=== PATIENT | female | born 1995 | race American Indian/Alaskan Native ===

== ENCOUNTER 2016-06-03 09:06 | Day surgery (SDC) | payer OTHER ==
--- NOTE | 2016-06-03 09:48 | Short Stay Summary ---
Short Stay Documentation Date of service: 06/03/16 Narrative H&P: Pt is a 20yo BF G0 LMP 04/17/16 presents for surgical evaluation of prolonged heavy vaginal bleeding unresponsive to hormonal therapy. - History Principal diagnosis: Dysfunctional uterine bleeding H&P: obtained from office Past Medical History: No medical history Past Surgical History: No surgical history Social history: no significant social history, single - Allergies and Medications Current Medications: Allergies No Known Allergies Allergy (Unverified 05/30/16 12:11) Home Medications Medication Instructions Recorded Confirmed Last Taken Type Ibuprofen [Motrin 800 MG tab] 800 mg PO PRN PRN 05/30/16 05/30/16 Unknown History Active Medications Cefazolin Sodium (Ancef/Sterile Water 2 Gm/20 Ml) 20 mls @ 80 mls/hr IV PREOP NR PRN Reason: Protocol Lactated Ringer's (Lactated Ringers) 1,000 mls @ 125 mls/hr IV DIRECT RASHEL - Physical exam General appearance: no acute distress Integumentary: no rash HEENT: Atraumatic Lungs: Clear to auscultation Breasts: deferred Heart: Regular rate Gastrointestinal: normal Female Genitourinary: deferred Rectal Exam: deferred Extremities: no ischemia, No edema Neurological: Normal gait, Normal speech - Brief post op/procedure progress note Date of procedure: 06/03/16 Pre-op diagnosis: Dysfunctional uterine bleeding Post-op diagnosis: same Procedure: 1. Hysteroscopy 2. D&C Anesthesia: MAC Findings: An 8-10 weeks size uterus with moderate amounts of endometrial tissue obtained. No polyps or endometrial masses seen. Surgeon: HORTENCIA SUAREZ Estimated blood loss: minimal Pathology: list (Endometrial currettings) Specimen disposition: to lab Condition: stable - Hospital course Hospital course: Unremarkable. - Disposition Condition at discharge: Good Disposition: DISCHARGED TO HOME OR [facility]ELFCARE - Discharge Diagnoses (1) DUB (dysfunctional uterine bleeding) Status: Chronic Short Stay Discharge Plan Activity: no restrictions Diet: regular Follow up with: HORTENCIA SUAREZ MD [Primary Care Provider] - 14 Days Prescriptions: HYDROcodone/APAP 5-325 [Milmay 5/325] 1 each PO Q6HR PRN #20 tablet PRN Reason: Pain
--- NOTE | 2016-06-03 09:48 | Anesthesia Consultation ---
Anesthesia Consult and Med Hx Date of service: 06/03/16 - Airway Anesthetic Teeth Evaluation: Good ROM Head & Neck: Adequate Mental/Hyoid Distance: Adequate Mallampati Class: Class II Intubation Access Assessment: Good - Pulmonary Exam CTA: Yes - Cardiac Exam Cardiac Exam: RRR - Pre-Operative Health Status ASA Pre-Surgery Classification: ASA1 Proposed Anesthetic Plan: General - Central Nervous System Hx Psychiatric Problems: No - Other Systems Hx Alcohol Use: Yes (occas) Hx Cancer: No - Additional Comments Anesthesia Medical History Comments: Healthy
[2016-06-03] MEDS ORDERED: NORCO 5/325 PO PRN (09:49)
[2016-06-03] MEDS ORDERED: ZOFRAN IV PRN (09:49)
--- NOTE | 2016-06-03 09:50 | Anesthesia Day of Surgery ---
Anesthesia Day of Surgery - Day of Surgery Patient Examined: Yes Patient H&P Reviewed: Yes Patient is NPO: Yes
[2016-06-03] MEDS ORDERED: DIPRIVAN 10 MG/ML IV ONE (09:54)
[2016-06-03] MEDS ORDERED: DILAUDID ONE (09:54)
[2016-06-03] MEDS ORDERED: DECADRON ONE (09:54)
[2016-06-03] MEDS ORDERED: TORADOL ONE (09:54)
[2016-06-03] MEDS ORDERED: ZOFRAN ONE (09:54)
[2016-06-03] MEDS ORDERED: XYLOCAINE MPF 2% ONE (09:54)
[2016-06-03] MEDS ORDERED: VERSED IV NR (10:00)
[2016-06-03] MEDS ORDERED: LACTATED RINGERS 1,000 ML IV SCH (10:00)
[2016-06-03] MEDS ORDERED: ANCEF/STERILE WATER 2 GM/20 ML 20 ML IV NR (10:00)
[2016-06-03 10:18] LABS: Hematocrit 41.5 % (30.3-42.9); Hemoglobin 13.9 gm/dl (10.1-14.3); Mean Corpuscular HGB Conc 34 % (30-34); Mean Corpuscular Hemoglobin 32 pg (28-32); Mean Corpuscular Volume 96 fl (79-97); Platelet Count 262 K/mm3 (140-440); Red Blood Count 4.35 M/mm3 (3.65-5.03); Red Cell Distribution Width 13.1 % (13.2-15.2)
[2016-06-03] MEDS ORDERED: NACL 0.9% IR ONE (10:45)
--- NOTE | 2016-06-03 11:12 | Operative Report ---
Operative Report Operative Report: PREOPERATIVE DIAGNOSIS: Dysfunctional uterine bleeding POSTOPERATIVE DIAGNOSIS: Same OPERATIVE PROCEDURE: 1. Hysteroscopy 2. Dilatation and curettage. SURGEON: Jose Boland MD ANESTHESIA: General Mac ANESTHESIOLOGIST: Dr. Pryor ESTIMATED BLOOD LOSS: 10 mL's FINDINGS: An 8-10 week size uterus with moderate amounts of endometrial curettings. No endometrial masses seen. COMPLICATIONS: None COUNTS: Correct x3. PROCEDURE: After the patient was correctly identified, and after general anesthesia was administered, the patient was prepped and draped in the usual sterile fashion and placed in dorsal lithotomy position. First, the bladder was emptied using a straight catheter. Next, a speculum was placed in the vaginal vault and the anterior lip of the cervix was grasped using a single- tooth tenaculum. The uterus was sounded to 9 cm. The cervical os was sequentially dilated, and the hysteroscope was introduced into the endocervical canal. Visualization of the endometrial cavity showed areas of lush endometrium , but no endometrial masses were seen. The hysteroscope was then removed, and gentle curettage was performed yielding moderate amounts of tissue which was sent to pathology. At this point the procedure was considered complete. All instruments were removed from the vagina. The patient tolerated the procedure well and was transferred to the recovery room in stable condition.
[2016-06-03] MEDS: DILAUDID IV PRN ×2 (11:18→11:28)
[2016-06-03 12:34] VITALS: BP 108/61
--- NOTE | 2016-06-03 12:43 | Post Anesthesia Evaluation ---
- Post Anesthesia Evaluation Patient Participated: Yes Airway Patent: Yes Stable Respiratory Function: Yes Nausea/Vomiting: No Temp > 96.8F: Yes Pain Manageable: Yes Adequeate Hydration: Yes Anesthesia Complications: No Block Receding Appropriately: Not Applicable Patient on Ventilator: No
== END 2016-06-03 12:30 | disposition home or self-care (01) ==
LOC: OR 09:06
PROVIDERS: ATTEND Obstetrics & Gynecology
DX: N93.8 Other specified abnormal uterine and vaginal bleeding (principal); G43.909 Migraine, unspecified, not intractable, without status migrainosus; Z72.89 Other problems related to lifestyle
CPT/HCPCS: 36415; 58558; 81025; 85027; 88305; A4217; J0690; J1100; J1170; J1885; J2250; J2405; J2704; J7120